=== PATIENT | male | born 1940 | race Two or more races ===

== ENCOUNTER 2020-08-18 05:30 | Day surgery (SDC) | payer OTHER ==
[~2020-08-18 05:30] MED LIST: ADULT LOW DOSE81 M1 PO; COZAAR100 MG PO; GLYCOTROL CAPS1 EACH PO; METFORMIN HCL1000 M2 PO; PRAVASTATIN SOD20 MG PO
== END 2020-08-18 11:45 | disposition home or self-care (01) ==
LOC: CIR.AMB 05:30
PROVIDERS: ATTEND Orthopaedic Surgery Hand Surgery
DX: S52.531A Colles' fracture of right radius, initial encounter for closed fracture (principal); Z20.828 Contact with and (suspected) exposure to other viral communicable diseases